=== PATIENT | female | born 1980 | race Hispanic/Latino ===

== ENCOUNTER 2017-09-29 06:02 | Emergency (ER) | payer OTHER ==
[2017-09-29 06:57] LABS: Absolute Lymphocytes (CBC) 2.8 K/uL (0.7-4.9); Absolute Monocytes 0.4 K/uL (0.1-1.3); Absolute Neutrophil 4.5 K/uL (1.8-8.0); Basophils % 0.8 % (0-1.3); Lymphocytes % 35.2 % (15.3-44.8); MCV 88.7 fL (80-100); MPV 8.4 fL (7.6-11.3); Monocytes % 5.2 % (3.3-12.3); RBC Red Blood Cell Count 4.06 M/uL (3.86-4.86)
[2017-09-29 07:10] LABS: Bicarbonate 26 mEq/L (21-31); Glucose Level 90 mg/dL (65-120); Potassium 3.8 mEq/L (3.6-5.0); Sodium Level 138 mEq/L (135-145)
[2017-09-29 07:11] LABS: BUN Blood Urea Nitrogen 12 mg/dL (6-20)
[2017-09-29] MEDS ORDERED: NA CHLORIDE 0.9% 1,000 ML ONE (07:18)
[2017-09-29] MEDS ORDERED: KETOROLAC 30 MG/ML INJ ONE (07:18)
--- NOTE | 2017-09-29 07:50 | ER ---
Nurse's Notes [facility] Name: Emelia Burton Age: 36 yrs Sex: Female : 1980 Arrival Date: 09/29/2017 Time: 06:03 Bed 5 Private MD: Diagnosis: Malaise and fatigue Presentation: 09/29 06:10 Presenting complaint: Patient states: dizziness, nausea, and fatigue since yesterday. aa1 Transition of care: patient was not received from another setting of care. Onset of symptoms was September 28, 2017. Initial Sepsis Screen: Does the patient meet any 2 criteria? No. Patient's initial sepsis screen is negative. Does the patient have a suspected source of infection? No. Patient's initial sepsis screen is negative. Care prior to arrival: None. 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 - Social history:: Smoking status: Patient/guardian denies using tobacco. Screenin:51 Abuse screen: Denies threats or abuse. Denies injuries from another. Nutritional ao screening: No deficits noted. Tuberculosis screening: No symptoms or risk factors identified. Fall Risk None identified. Assessment: 06:35 General: Appears in no apparent distress. comfortable, Behavior is calm, cooperative, ao appropriate for age. Pain: Complains of pain in headache Pain does not radiate. Pain currently is 7 out of 10 on a pain scale. Neuro: Level of Consciousness is awake, alert, obeys commands, Oriented to person, place, time, situation, Appropriate for age Moves all extremities. Speech is normal, Facial symmetry appears normal. Cardiovascular: Heart tones S1 S2 Capillary refill < 3 seconds Patient's skin is warm and dry. Respiratory: Airway is patent Respiratory effort is even, unlabored, Respiratory pattern is regular, symmetrical, Breath sounds are clear bilaterally. GI: Abdomen is non-distended. : No signs and/or symptoms were reported regarding the genitourinary system. EENT: No signs and/or symptoms were reported regarding the EENT system. Derm: Skin is intact, Skin is pink, warm \T\ dry. normal, Skin temperature is warm. Musculoskeletal: No signs and/or symptoms reported regarding the musculoskeletal system. 07:20 Reassessment: Patient appears in no apparent distress at this time. Patient and/or sg family updated on plan of care and expected duration. Pain level reassessed. Patient is alert, oriented x 3, equal unlabored respirations, skin warm/dry/pink. pt requesting a pillow, no pillows on the unit at this time, pt given towels and elevated head with those. Vital Signs: 06:12 BP 125 / 76; Pulse 77; Resp 18; Temp 97.0; Pulse Ox 99% on R/A; Weight 81.65 kg; Height aa1 5 ft. 0 in. (152.40 cm); Pain 7/10; 07:24 BP 114 / 75; Pulse 68; Resp 18; Pulse Ox 100% on R/A; sg 06:12 Body Mass Index 35.15 (81.65 kg, 152.40 cm) aa1 [place] Coma Score: 07:24 Eye Response: spontaneous(4). Verbal Response: oriented(5). Motor Response: obeys sg commands(6). Total: 15. ED Course: 06:03 Patient arrived in ED. ds1 06:11 Triage completed. aa1 06:12 Arm band placed on right wrist. Patient placed in an exam room, on a stretcher. aa1 06:13 [facility]asm[facility]C [facility] kb 06:13 Abel Warner MD is Attending Physician. kb 06:51 Patient has correct armband on for positive identification. Pulse ox on. NIBP on. ao 06:51 Inserted saline lock: 22 gauge in right forearm, using aseptic technique. Blood ao collected. 07:11 Fernie Briscoe, RN is Primary Nurse. sg 08:00 No provider procedures requiring assistance completed. IV discontinued, intact, sg bleeding controlled, No redness/swelling at site. Pressure dressing applied. Administered Medications: 07:23 Drug: NS 0.9% 1000 ml Route: IV; Rate: 1000 ml; Site: right wrist; sg 08:00 Follow up: Response: No adverse reaction; IV Status: Completed infusion; IV Intake: sg 990ml 07:23 Drug: TORadol 30 mg Route: IVP; Site: right wrist; sg 08:00 Follow up: Response: No adverse reaction; Pain is decreased sg Intake: 08:00 IV: 990ml; Total: 990ml. sg Outcome: 07:49 Discharge ordered by MD. liu 08:10 Discharged to home ambulatory. sg 08:10 Condition: good 08:10 Discharge instructions given to patient, Instructed on discharge instructions, follow up and referral plans. safety practices, Demonstrated understanding of instructions, follow-up care. 08:14 Patient left the ED. sg Signatures: Mariah Rasmussen, FORENSIC STRUCTURAL ENGINEER-C FORENSIC STRUCTURAL ENGINEER-Fernie Beck RN RN sg Radha Aldridge RN RN aa1 Kiah Wu ds1 Gilberto Call RN RN ao Corrections: (The following items were deleted from the chart) 06:13 06:12 PSHx: None; aa1 aa1
--- NOTE | 2017-09-29 07:50 | EDPHYS ---
Physician Documentation [facility] Name: Emelia Burton Age: 36 yrs Sex: Female : 1980 Arrival Date: 09/29/2017 Time: 06:03 Bed 5 Private MD: ED Physician Abel Warner HPI: 09/29 06:15 This 36 yrs old Female presents to ER via Ambulatory with complaints of kb Weakness. 06:15 The patient presents with dizziness, generalized weakness. Onset: The symptoms/episode kb began/occurred yesterday. Context: occurred at home, just prior to the episode the patient experienced no apparent symptoms. Modifying factors: The symptoms are alleviated by nothing, the symptoms are aggravated by nothing. Associated signs and symptoms: The patient has no apparent associated signs or symptoms. Severity of symptoms: At their worst the symptoms were mild moderate in the emergency department the symptoms are unchanged. Patient's baseline: Neuro: alert and fully oriented, Motor: no deficits, Ambulation: walks without assistance, Speech: normal. The patient has not experienced similar symptoms in the past. The patient has not recently seen a physician. Pt states she has had weakness, fatigue and dizziness since yesterday. States it got worse this morning when she went to work. Denies chest pain, palpitations or shortness of breath. States "I just assumed it was my blood pressure, but I don't have blood pressure problems.". 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 - Social history:: Smoking status: Patient/guardian denies using tobacco. ROS: 06:14 Constitutional: Negative for fever, chills, and weight loss, Cardiovascular: Negative kb for chest pain, palpitations, and edema, Respiratory: Negative for shortness of breath, cough, wheezing, and pleuritic chest pain, Abdomen/GI: Negative for abdominal pain, nausea, vomiting, diarrhea, and constipation, Back: Negative for injury and pain, : Negative for injury, bleeding, discharge, and swelling, MS/Extremity: Negative for injury and deformity, Skin: Negative for injury, rash, and discoloration. 06:14 Neuro: Positive for dizziness, headache, weakness, Negative for altered mental status, gait disturbance, hearing loss, loss of consciousness, numbness, seizure activity, speech changes, syncope, near syncope, tingling, tinnitus, tremor, visual changes. Exam: 06:14 Constitutional: This is a well developed, well nourished patient who is awake, alert, kb and in no acute distress. Head/Face: Normocephalic, atraumatic. ENT: Nares patent. No nasal discharge, no septal abnormalities noted. Tympanic membranes are normal and external auditory canals are clear. Oropharynx with no redness, swelling, or masses, exudates, or evidence of obstruction, uvula midline. Mucous membranes moist. Chest/axilla: Normal chest wall appearance and motion. Nontender with no deformity. No lesions are appreciated. Cardiovascular: Regular rate and rhythm with a normal S1 and S2. No gallops, murmurs, or rubs. Normal PMI, no JVD. No pulse deficits. Respiratory: Lungs have equal breath sounds bilaterally, clear to auscultation and percussion. No rales, rhonchi or wheezes noted. No increased work of breathing, no retractions or nasal flaring. Abdomen/GI: Soft, non-tender, with normal bowel sounds. No distension or tympany. No guarding or rebound. No evidence of tenderness throughout. Back: No spinal tenderness. No costovertebral tenderness. Full range of motion. Skin: Warm, dry with normal turgor. Normal color with no rashes, no lesions, and no evidence of cellulitis. MS/ Extremity: Pulses equal, no cyanosis. Neurovascular intact. Full, normal range of motion. Neuro: Awake and alert, GCS 15, oriented to person, place, time, and situation. Cranial nerves II-XII grossly intact. Motor strength 5/5 in all extremities. Sensory grossly intact. Cerebellar exam normal. Normal gait. Vital Signs: 06:12 BP 125 / 76; Pulse 77; Resp 18; Temp 97.0; Pulse Ox 99% on R/A; Weight 81.65 kg; Height aa1 5 ft. 0 in. (152.40 cm); Pain 7/10; 07:24 BP 114 / 75; Pulse 68; Resp 18; Pulse Ox 100% on R/A; sg 06:12 Body Mass Index 35.15 (81.65 kg, 152.40 cm) aa1 [place] Coma Score: 07:24 Eye Response: spontaneous(4). Verbal Response: oriented(5). Motor Response: obeys sg commands(6). Total: 15. MDM: 06:13 Patient medically screened. kb 06:15 Data reviewed: vital signs, nurses notes. Data interpreted: Pulse oximetry: on room air kb is 99 %. Interpretation: normal. 06:32 ED course: Pt ambulates with steady gait to room and restroom. No neuro deficits noted. kb . 07:48 Counseling: I had a detailed discussion with the patient and/or guardian regarding: the kb historical points, exam findings, and any diagnostic results supporting the discharge/admit diagnosis, lab results, the need for outpatient follow up, a family practitioner, to return to the emergency department if symptoms worsen or persist or if there are any questions or concerns that arise at home. 09/29 06:14 Order name: CBC with Diff; Complete Time: 07:03 kb 09/29 06:14 Order name: Basic Metabolic Panel; Complete Time: 07:12 kb 09/29 06:14 Order name: [place] Screen Profile; Complete Time: 07:48 kb 09/29 06:40 Order name: Urine Dipstick--Ancillary (enter results) fc 09/29 06:14 Order name: Urine Dipstick-Ancillary (obtain specimen); Complete Time: 06:31 kb 09/29 06:14 Order name: IV Start; Complete Time: 06:52 kb Administered Medications: 07:23 Drug: NS 0.9% 1000 ml Route: IV; Rate: 1000 ml; Site: right wrist; sg 08:00 Follow up: Response: No adverse reaction; IV Status: Completed infusion; IV Intake: sg 990ml 07:23 Drug: TORadol 30 mg Route: IVP; Site: right wrist; sg 08:00 Follow up: Response: No adverse reaction; Pain is decreased sg Disposition: 09/30 03:28 Co-signature as Attending Physician, Mariah GONGORA I agree with the assessment tw4 and plan of care. Disposition: 09/29/17 07:49 Discharged to Home. Impression: Malaise and fatigue. - Condition is Stable. - Discharge Instructions: Fatigue, Weakness, [id number]. - Medication Reconciliation Form, Thank You Letter, Antibiotic Education, Prescription Opioid Use, Work release form form. - Follow up: Emergency Department; When: As needed; Reason: Worsening of condition. Follow up: Private Physician; When: 2 - 3 days; Reason: Recheck today's complaints, Continuance of care, Re-evaluation by your physician. Signatures: Dispatcher [employer] EDMariah Carballo, LYNN-C CARE ASST-Fernie Beck, RN RN sg Radha Aldridge RN RN aa1 Abel Warner MD MD tw4 Corrections: (The following items were deleted from the chart) 09/29 06:13 06:12 PSHx: None; aa1 aa1 06:31 06:14 Urine Test ordered. noe liu 08:14 07:49 09/29/2017 07:49 Discharged to Home. Impression: Malaise and fatigue. Condition sg is Stable. Discharge Instructions: Fatigue, Weakness, [id number]. Forms are Medication Reconciliation Form, Thank You Letter, Antibiotic Education, Prescription Opioid Use. Follow up: Emergency Department; When: As needed; Reason: Worsening of condition. Follow up: Private Physician; When: 2 - 3 days; Reason: Recheck today's complaints, Continuance of care, Re-evaluation by your physician. kb
[2017-09-29 09:50] LABS: Urine Blood NEGATIVE (NEG); Urine Glucose NEGATIVE (NEG); Urine Protein NEGATIVE (NEG)
== END 2017-09-29 08:14 | disposition home or self-care (01) ==
LOC: ER 06:02
DX: R53.81 Other malaise (principal); R53.83 Other fatigue
CPT/HCPCS: 36415; 80048; 81003; 85025; 86308; 96361; 96374; 99284; J7030

== ENCOUNTER 2017-09-30 15:39 | Emergency (ER) | payer OTHER ==
--- NOTE | 2017-09-30 17:02 | RAD REPORT ---
EXAM DESCRIPTION: CT - Head Brain Wo Cont - 09/30/2017 4:56 pm CLINICAL HISTORY: Persistent headache COMPARISON: None. TECHNIQUE: Axial 5 mm thick images of the head were obtained without IV contrast. All CT scans are performed using dose optimization technique as appropriate and may include automated exposure control or mA/KV adjustment according to patient size. FINDINGS: No intracranial hemorrhage, mass, edema or shift of mid-line structures. No acute infarcti on changes seen. No abnormal extra-axial fluid collections. Ventricles are normal. Mastoid air cells and visualized portions of the paranasal sinuses are clear. No acute bony findings. IMPRESSION: Negative non-contrast CT head examination.
[2017-09-30] MEDS ORDERED: DEXAMETHASONE 10 MG/ML VIAL ONE (17:21)
[2017-09-30] MEDS ORDERED: METOCLOPRAMIDE 10 MG/2mL INJ ONE (17:21)
[2017-09-30] MEDS ORDERED: DIPHENHYDRAMINE 50 MG/ML VIAL ONE (17:21)
[2017-09-30] MEDS ORDERED: NA CHLORIDE 0.9% 1,000 ML ONE (17:21)
[2017-09-30] MEDS ORDERED: ONDANSETRON 4 MG/2 ML VIAL ONE (17:22)
[2017-09-30 17:29] LABS: Absolute Lymphocytes (CBC) 2.7 K/uL (0.7-4.9); Absolute Monocytes 0.5 K/uL (0.1-1.3); Absolute Neutrophil 5.7 K/uL (1.8-8.0); Basophils % 0.4 % (0-1.3); Eosinophils % 1.6 % (0-4.4); Hematocrit 36.5 % (36.0-45.0); Lymphocytes % 29.6 % (15.3-44.8); MCH 29.9 pg (27.0-35.0); MCV 89.2 fL (80-100); MPV 8.2 fL (7.6-11.3); RBC Red Blood Cell Count 4.09 M/uL (3.86-4.86)
[2017-09-30 17:32] LABS: Protime INR 1.01
[2017-09-30 17:37] LABS: BUN Blood Urea Nitrogen 14 mg/dL (6-20); Bicarbonate 27 mEq/L (21-31); Glucose Level 103 mg/dL (65-120); Potassium 3.7 mEq/L (3.6-5.0); Sodium Level 139 mEq/L (135-145)
--- NOTE | 2017-09-30 18:17 | EDPHYS ---
Physician Documentation [facility] Name: Emelia Burton Age: 36 yrs Sex: Female : 1980 Arrival Date: 09/30/2017 Time: 15:42 Bed 23 Private MD: ED Physician Joey Napier HPI: 09/30 16:30 This 36 yrs old Female presents to ER via Ambulatory with complaints of cp Headache. 16:30 The patient complains of pain to the forehead and left restorationist. cp 16:30 The patient describes the headache as aching, constant. Onset: The symptoms/episode cp began/occurred yesterday. Associated signs and symptoms: Pertinent positives: nausea, Photophobia general weakness. Severity of symptoms: in the emergency department the pain a " 10" out of "10". Headache History: Other more persistent than usual. The patient has been recently seen at the [facility], yesterday, for similar complaints labs were performed. 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 - Social history:: Smoking status: Patient/guardian denies using tobacco. ROS: 16:35 Constitutional: Negative for body aches, chills, fever, poor PO intake. cp 16:35 Eyes: Negative for injury, pain, redness, and discharge. cp 16:35 ENT: Negative for drainage from ear(s), ear pain, sore throat, difficulty swallowing, cp difficulty handling secretions. 16:35 Cardiovascular: Negative for chest pain, edema, palpitations. cp 16:35 Respiratory: Negative for cough, shortness of breath, wheezing. 16:35 Abdomen/GI: Positive for nausea, Negative for abdominal pain, vomiting, diarrhea, constipation. 16:35 Back: Negative for pain at rest, pain with movement, radiated pain. 16:35 : Negative for urinary symptoms. 16:35 MS/extremity: Negative for injury or acute deformity, decreased range of motion. 16:35 Neuro: Positive for headache, Negative for altered mental status, dizziness, weakness. 16:35 All other systems are negative. Exam: 16:45 Constitutional: The patient appears in no acute distress, alert, awake, cp non-diaphoretic, non-toxic, well developed, well nourished, uncomfortable. 16:45 Head/Face: Normocephalic, atraumatic. Eyes: Pupils equal round and reactive to light, cp extra-ocular motions intact. Lids and lashes normal. Conjunctiva and sclera are non-icteric and not injected. Cornea within normal limits. Periorbital areas with no swelling, redness, or edema. ENT: Nares patent. No nasal discharge, no septal abnormalities noted. Tympanic membranes are normal and external auditory canals are clear. Oropharynx with no redness, swelling, or masses, exudates, or evidence of obstruction, uvula midline. Mucous membranes moist. Neck: Trachea midline, no thyromegaly or masses palpated, and no cervical lymphadenopathy. Supple, full range of motion without nuchal rigidity, or vertebral point tenderness. No Meningismus. Chest/axilla: Normal chest wall appearance and motion. Nontender with no deformity. No lesions are appreciated. 16:45 Cardiovascular: Rate: normal, Rhythm: regular, Pulses: Pulses are 2+ in right radial artery and left radial artery. Edema: is not appreciated, JVD: is not appreciated. 16:45 Respiratory: the patient does not display signs of respiratory distress, Respirations: normal, no use of accessory muscles, no retractions, no splinting, no tachypnea, labored breathing, is not present, Breath sounds: are clear throughout, no decreased breath sounds, no stridor, no wheezing. 16:45 Abdomen/GI: Inspection: abdomen appears normal, Bowel sounds: active, all quadrants, Palpation: abdomen is soft and non-tender, in all quadrants, rebound tenderness, is not appreciated, voluntary guarding, is not appreciated, involuntary guarding, is not appreciated. 16:45 Back: pain, is absent, ROM is normal. 16:45 Skin: cellulitis, no rash present. cp 16:45 Neuro: Orientation: to person, place \\T\\ time. Mentation: lucid, able to follow commands, cp Cerebellar function: is grossly normal, Motor: moves all fours, strength is normal, Sensation: no obvious gross deficits, Gait: is steady. Vital Signs: 16:13 BP 130 / 74; Pulse 90; Resp 18; Temp 98.3; Pulse Ox 98% on R/A; Weight 81.65 kg; Height ph 5 ft. 0 in. (152.40 cm); Pain 10/10; 17:39 BP 130 / 71; Pulse 86; Resp 20; Pulse Ox 97% on R/A; mb3 17:59 BP 124 / 81; Pulse 61; Resp 14; Pulse Ox 100% on R/A; Pain 0/10; mb3 19:02 BP 118 / 76; Pulse 83; Resp 18; Pulse Ox 97% on R/A; Pain 0/10; mb3 16:13 Body Mass Index 35.15 (81.65 kg, 152.40 cm) ph MDM: 16:17 Patient medically screened. ai 17:10 Refusal of service: The patient/guardian displays adequate decision making capability cp and despite a detailed discussion of alternatives, benefits, risks, and consequences refuses: Lumbar Puncture procedure. 18:15 Data reviewed: vital signs, nurses notes, lab test result(s), radiologic studies, CT cp scan, and as a result, I will discharge patient. 18:15 Response to treatment: the patient's symptoms have markedly improved after treatment. 09/30 16:31 Order name: CBC with Diff; Complete Time: 18:12 09/30 18:13 Interpretation: Reviewed. 09/30 16:31 Order name: BMP; Complete Time: 18:12 cp / 18:13 Interpretation: Reviewed. 09/30 16:31 Order name: CT Head Brain wo Cont: headache; Complete Time: 17:08 09/30 17:08 Interpretation: Report reviewed. 05 16:31 Order name: PT-INR; Complete Time: 18:12 cp 09/30 16:31 Order name: Ptt, Activated; Complete Time: 18:12 cp 09/30 16:26 Order name: Orthostatics 09/30 16:31 Order name: Urine Dipstick-Ancillary (obtain specimen) 05 16:31 Order name: Urine Test (obtain specimen) / 16:31 Order name: IV; Complete Time: 17:37 cp Administered Medications: 17:25 Drug: Benadryl 25 mg Route: IVP; Site: right forearm; mb3 18:03 Follow up: Response: No adverse reaction; Pain is decreased mb3 17:25 Drug: NS 0.9% 1000 ml Route: IV; Rate: 1 bolus; Site: right forearm; mb3 19:02 Follow up: Response: No adverse reaction; IV Status: Completed infusion; IV Intake: mb3 600ml 17:26 Drug: Reglan 10 mg Route: IVP; Site: right forearm; mb3 18:03 Follow up: Response: No adverse reaction; Pain is decreased mb3 17:26 Drug: Dexamethasone 10 mg Route: IVP; Site: right forearm; mb3 18:03 Follow up: Response: No adverse reaction mb3 17:26 Drug: Zofran 4 mg Route: IVP; Site: right forearm; mb3 18:03 Follow up: Response: No adverse reaction; Nausea is decreased mb3 Disposition: 10/01 11:46 Co-signature as Attending Physician, Joey Napier MD I agree with the assessment and ai plan of care. Disposition: 09/30/17 18:16 Discharged to Home. Impression: Headache. - Condition is Stable. - Discharge Instructions: Migraine Headache. - Prescriptions for Fiorinal 50- 325-40 mg Oral Capsule - take 1 capsule by ORAL route every 4 hours As needed - not to exceed 6 capsules per day; 20 capsule. promethazine 25 mg Oral Tablet - take 1 tablet by ORAL route every 6 hours As needed; 20 tablet. - Medication Reconciliation Form, Thank You Letter, Antibiotic Education, Prescription Opioid Use form. - Follow up: Sacha Gant MD; When: 1 - 2 days; Reason: Recheck today's complaints. - Problem is an ongoing problem. - Symptoms have improved. Signatures: Dispatcher [employer] Joey Olmstead MD MD cha Hall, Patricia RN RN ph Joey Hernandez PA PA cp Barnett, Mark, RN RN mb3 Corrections: (The following items were deleted from the chart) 09/30 19:04 18:16 09/30/2017 18:16 Discharged to Home. Impression: Headache. Condition is Stable. mb3 Forms are Medication Reconciliation Form, Thank You Letter, Antibiotic Education, Prescription Opioid Use. Follow up: Sacha Gant; When: 1 - 2 days; Reason: Recheck today's complaints. Problem is an ongoing problem. Symptoms have improved. cp
--- NOTE | 2017-09-30 18:17 | ER ---
Nurse's Notes [facility] Name: Emelia Burton Age: 36 yrs Sex: Female : 1980 Arrival Date: 09/30/2017 Time: 15:42 Bed 23 Private MD: Diagnosis: Headache Presentation: 09/30 16:10 Presenting complaint: Patient states: " I have had a headache since yesterday and it ph won't go away. I took Tylenol and it hasn't helped. I have Topamax but it seem like when I take it the headache comes back worse the next day." Pt reports headache 10/10, nausea, fatigue and sensitivity to smells. Transition of care: patient was not received from another setting of care. Onset of symptoms was September 30, 2017. Initial Sepsis Screen: Does the patient meet any 2 criteria? No. Patient's initial sepsis screen is negative. Does the patient have a suspected source of infection? No. Patient's initial sepsis screen is negative. Care prior to arrival: Medication(s) given: Tylenol, at 1300. 16:10 Method Of Arrival: Ambulatory ph 16:10 Acuity: SARAY 3 ph Triage Assessment: 16:36 Headache History: The patient has had previous headaches and this one is similar to mb3 previous episodes. General: Appears uncomfortable, well groomed. General: Appears Behavior is calm, cooperative, appropriate for age. Pain: Pain began. Pain: Complains of pain in forehead and left nondenominational. 19:03 Pain: Also complains of no other associated symptoms. mb3 PROJECT ENG: 16:13 LMP N/A - Hysterectomy ph Historical: - Allergies: 16:13 No Known Allergies; ph - Home Meds: 16:13 Topamax Oral [Active]; ph - PMHx: 16:13 Migraines; ph - PSHx: 16:13 Hysterectomy; ph - Immunization history:: Adult Immunizations up to date. - Social history:: Smoking status: Patient/guardian denies using tobacco. Screenin:35 Abuse screen: Denies threats or abuse. Nutritional screening: No deficits noted. mb3 Tuberculosis screening: No symptoms or risk factors identified. Fall Risk None identified. Assessment: 16:31 General: Appears distressed, uncomfortable, well groomed, Behavior is calm, mb3 cooperative, appropriate for age. Pain: Complains of pain in forehead and left nondenominational Pain radiates to base of the skull Pain at worst was 10 out of 10 on a pain scale. Neuro: No deficits noted. Level of Consciousness is awake, alert, obeys commands, Oriented to person, place, time, situation. Cardiovascular: No deficits noted. Heart tones S1 S2 present Capillary refill < 3 seconds. Respiratory: No deficits noted. Airway is patent Breath sounds are clear bilaterally. GI: No deficits noted. No signs and/or symptoms were reported involving the gastrointestinal system. : No deficits noted. No signs and/or symptoms were reported regarding the genitourinary system. EENT: No signs and/or symptoms were reported regarding the EENT system. Musculoskeletal: No signs and/or symptoms reported regarding the musculoskeletal system. Capillary refill < 3 seconds. 17:58 Reassessment: Patient appears in no apparent distress at this time. Patient and/or mb3 family updated on plan of care and expected duration. Pain level reassessed. Patient is alert, oriented x 3, equal unlabored respirations, skin warm/dry/pink. Patient states feeling better. Patient states symptoms have improved. Vital Signs: 16:13 BP 130 / 74; Pulse 90; Resp 18; Temp 98.3; Pulse Ox 98% on R/A; Weight 81.65 kg; Height ph 5 ft. 0 in. (152.40 cm); Pain 10/10; 17:39 BP 130 / 71; Pulse 86; Resp 20; Pulse Ox 97% on R/A; mb3 17:59 BP 124 / 81; Pulse 61; Resp 14; Pulse Ox 100% on R/A; Pain 0/10; mb3 19:02 BP 118 / 76; Pulse 83; Resp 18; Pulse Ox 97% on R/A; Pain 0/10; mb3 16:13 Body Mass Index 35.15 (81.65 kg, 152.40 cm) ph ED Course: 15:42 Patient arrived in ED. mr 16:12 Triage completed. ph 16:14 Arm band placed on. ph 16:16 Joey Hernandez PA is PHCP. cp 16:16 Joey Napier MD is Attending Physician. cp 16:26 Jimy Dietz, ALFRED is Primary Nurse. mb3 16:36 Patient has correct armband on for positive identification. Bed in low position. Call mb3 light in reach. Side rails up X 1. 16:[address] via wheelchair. mb3 16:52 CT completed. Patient tolerated procedure well. Patient moved to CT via wheelchair. sj Patient moved back from CT. 16:56 CT Head Brain wo Cont: headache In Process Unspecified. EDMS 17:07 Patient moved back from CT. mb3 17:10 Inserted saline lock: 20 gauge in right forearm, using aseptic technique. mb3 18:15 Sacha Gant MD is Referral Physician. cp 19:03 No provider procedures requiring assistance completed. IV discontinued, intact, mb3 bleeding controlled, No redness/swelling at site. Pressure dressing applied. Administered Medications: 17:25 Drug: Benadryl 25 mg Route: IVP; Site: right forearm; mb3 18:03 Follow up: Response: No adverse reaction; Pain is decreased mb3 17:25 Drug: NS 0.9% 1000 ml Route: IV; Rate: 1 bolus; Site: right forearm; mb3 19:02 Follow up: Response: No adverse reaction; IV Status: Completed infusion; IV Intake: mb3 600ml 17:26 Drug: Reglan 10 mg Route: IVP; Site: right forearm; mb3 18:03 Follow up: Response: No adverse reaction; Pain is decreased mb3 17:26 Drug: Dexamethasone 10 mg Route: IVP; Site: right forearm; mb3 18:03 Follow up: Response: No adverse reaction mb3 17:26 Drug: Zofran 4 mg Route: IVP; Site: right forearm; mb3 18:03 Follow up: Response: No adverse reaction; Nausea is decreased mb3 Intake: 19:02 IV: 600ml; Total: 600ml. mb3 Outcome: 18:16 Discharge ordered by . cp 19:04 Discharged to home ambulatory, with family. mb3 19:04 Condition: stable 19:04 Discharge instructions given to patient, family, Instructed on discharge instructions, follow up and referral plans. medication usage, Demonstrated understanding of instructions, follow-up care, medications, Prescriptions given X 2. 19:04 Patient left the ED. mb3 Signatures: Dispatcher [employer] [facility] Becki Orr Rox Malloy Patricia, RN RN Joey Barrett, KATHRYN PA cp Jimy Dietz RN RN mb3
== END 2017-09-30 19:04 | disposition home or self-care (01) ==
LOC: ER 15:39
DX: R51 Headache (principal)
CPT/HCPCS: 36415; 70450; 80048; 85025; 85610; 85730; 96361; 96374; 96375; 99284; J1100; J2405; J2765; J7030

== ENCOUNTER 2018-02-20 21:38 | Emergency (ER) | payer OTHER ==
[2018-02-20 22:14] LABS: Absolute Monocytes 0.6 K/uL (0.1-1.3); Absolute Neutrophil 7.6 K/uL (1.8-8.0); Basophils % 0.8 % (0-1.3); Eosinophils % 1.1 % (0-4.4); Hematocrit 38.7 % (36.0-45.0); Lymphocytes % 26.4 % (15.3-44.8); MCH 30.8 pg (27.0-35.0); MCV 88.4 fL (80-100); MPV 8.8 fL (7.6-11.3); Monocytes % 5.4 % (3.3-12.3); RBC Red Blood Cell Count 4.37 M/uL (3.86-4.86)
[2018-02-20 22:17] LABS: Protime INR 1.07
[2018-02-20 22:37] LABS: ALT/SGPT 62 U/L (12-78); AST/SGOT 27 U/L (15-37); Alkaline Phosphatase 97 U/L (45-117); BUN Blood Urea Nitrogen 13 mg/dL (7-18); Bicarbonate 24 mmol/L (21-32); Bilirubin Direct 0.2 mg/dL (0-0.2); Bilirubin Total 0.5 mg/dL (0.2-1.0); Glucose Level 95 mg/dL (74-106); Magnesium 2.2 mg/dL (1.8-2.4); NT PRO-BNP 19 pg/mL (<125); Potassium 3.4 mmol/L (3.5-5.1); Protein, Total 7.4 g/dL (6.4-8.2); Sodium Level 140 mmol/L (136-145); Troponin (Emerg Dept Use Only) < 0.02 ng/mL (0.0-0.045)
[2018-02-20] MEDS ORDERED: POTASSIUM 25 MEQ EFFERV TAB ONE (22:50)
--- NOTE | 2018-02-21 00:19 | ER ---
Nurse's Notes [facility] Name: Emelia Burton Age: 37 yrs Sex: Female : 1980 Arrival Date: 02/20/2018 Time: 21:43 Bed 8 Private MD: Diagnosis: Syncope and collapse Presentation: 02/20 21:44 Presenting complaint: EMS states: Pt was working outside all day. Pt states she started tl2 feeling weak after work, went home to take a shower continued to feel weak and tired. Pt states she returned home from the store and felt "cold" and passed out. Did not wake up until paramedics arrived and did a sternal rub. Pt is AOx4 in triage. Transition of care: patient was not received from another setting of care. Onset of symptoms was 1800. Risk Assessment: Do you want to hurt yourself or someone else? Patient reports no desire to harm self or others. Initial Sepsis Screen: Does the patient meet any 2 criteria? No. Patient's initial sepsis screen is negative. Does the patient have a suspected source of infection? No. Patient's initial sepsis screen is negative. Care prior to arrival: IV initiated. 18 GA, in the right antecubital area, Glucose check: 104. 21:44 Method Of Arrival: EMS: [facility] tl2 21:44 Acuity: SARAY 3 tl2 Triage Assessment: 21:48 General: Appears in no apparent distress. uncomfortable, Behavior is calm, cooperative, tl2 appropriate for age, drowsy. Pain: Denies pain. Neuro: Level of Consciousness is awake, alert, obeys commands, Oriented to person, place, time, situation, Speech is normal, Facial symmetry appears normal. Neuro: Reports dizziness, a syncopal episode weakness. Cardiovascular: Denies chest pain. Respiratory: Airway is patent Respiratory effort is even, unlabored, Respiratory pattern is regular, symmetrical. GI: No signs and/or symptoms were reported involving the gastrointestinal system. Derm: Skin is pale. Historical: - Allergies: 21:48 No Known Allergies; tl2 - Home Meds: 21:48 Topamax Oral [Active]; tl2 - PMHx: 21:48 Migraines; tl2 - PSHx: 21:48 None; tl2 - Immunization history:: Adult Immunizations up to date. - Social history:: Smoking status: Patient/guardian denies using tobacco. - Ebola Screening: : No symptoms or risks identified at this time. Screenin:53 Abuse screen: Denies threats or abuse. Nutritional screening: No deficits noted. tl2 Tuberculosis screening: No symptoms or risk factors identified. Fall Risk Gait- Weak (10 pts.). Assessment: 22:04 General: see triage assessment. tl2 23:00 Reassessment: Patient appears in no apparent distress at this time. Patient and/or tl2 family updated on plan of care and expected duration. Pain level reassessed. Patient is alert, oriented x 3, equal unlabored respirations, skin warm/dry/pink. 23:30 Reassessment: Patient appears in no apparent distress at this time. Patient and/or tl2 family updated on plan of care and expected duration. Pain level reassessed. Patient is alert, oriented x 3, equal unlabored respirations, skin warm/dry/pink. pt ambulatory to restroom. 02/21 00:25 Reassessment: Patient appears in no apparent distress at this time. Patient and/or tl2 family updated on plan of care and expected duration. Pain level reassessed. Patient is alert, oriented x 3, equal unlabored respirations, skin warm/dry/pink. Pt verbalized understanding of discharge instructions, need for follow up Patient states feeling better. Vital Signs: 02/20 21:48 BP 133 / 92; Pulse 70; Resp 18; Temp 98.1(O); Pulse Ox 99% on R/A; Weight 79.38 kg; tl2 Height 5 ft. 0 in. (152.40 cm); Pain 0/10; 22:04 BP 124 / 84 Supine; Pulse 71; tl2 22:04 BP 127 / 67 Sitting; Pulse 78; tl2 22:04 BP 124 / 91 Standing; Pulse 83; tl2 23:03 BP 124 / 91; Pulse 83; Resp 18; Pulse Ox 99% on R/A; tl2 02/21 00:04 BP 115 / 76; Pulse 71; Resp 18; Pulse Ox 100% on R/A; tl2 02/20 21:48 Body Mass Index 34.18 (79.38 kg, 152.40 cm) tl2 ED Course: 02/20 21:43 Patient arrived in ED. tl2 21:45 Joey Hernandez PA is PHCP. cp 21:45 Raghav Doherty MD is Attending Physician. cp 21:47 Triage completed. tl2 21:48 Arm band placed on right wrist. tl2 21:53 Patient has correct armband on for positive identification. Placed in gown. Bed in low tl2 position. Call light in reach. Side rails up X2. 21:53 Maintain EMS IV. Dressing intact. Good blood return noted. Site clean \\T\\ dry. Gauge \\T\\ tl 2 site: 18 g R AC. 21:56 Chen Fleming RN is Primary Nurse. tl2 22:18 Notified Nurse Practitioner and/or Physician Production Broacher of a critical lab result(s), evelyn D-Dimer [phone] Joey PERALTA notified. 22:53 Radiology exam delayed due to test not completed at this time. jg6 23:17 Radiology exam delayed due to test not completed at this time. kw1 23:[address] via wheelchair. kw1 23:46 CT completed. Patient tolerated procedure well. Patient moved back from CT. kw1 23:48 CT Head C Spine In Process Unspecified. EDMS 23:52 CT Chest For PE Angio In Process Unspecified. EDMS 02/21 00:17 Marcial Gracia MD is Referral Physician. cp 00:25 No provider procedures requiring assistance completed. IV discontinued, intact, tl2 bleeding controlled, No redness/swelling at site. Pressure dressing applied. 00:26 Primary Nurse role handed off by Chen Fleming RN tl2 00:31 Chen Fleming RN is Primary Nurse. tl2 Administered Medications: 02/20 22:48 Drug: Potassium Effervescent Tablet 25 mEq Route: PO; ea 02/21 00:26 Follow up: Response: No adverse reaction tl2 Outcome: 00:18 Discharge ordered by . cp 00:25 Discharged to home ambulatory, with family. tl2 00:25 Condition: stable 00:25 Discharge instructions given to patient, family, Instructed on discharge instructions, follow up and referral plans. Demonstrated understanding of instructions, follow-up care. 00:26 Patient left the ED. tl2 00:32 Patient left the ED. tl2 Signatures: Dispatcher [employer] EDLeida Leonard RN RN bb Page, Corey, PA PA cp Knox, Taylor, RN RN tl2 Dafne Long RN RN ea Wilhelm, Kimberly kw1 Jessica Noble jg6
--- NOTE | 2018-02-21 00:19 | EDPHYS ---
Physician Documentation [facility] Name: Emelia Burton Age: 37 yrs Sex: Female : 1980 Arrival Date: 02/20/2018 Time: 21:43 Bed 8 Private MD: ED Physician Raghav Doherty HPI: 02/20 22:00 This 37 yrs old Female presents to ER via EMS with complaints of Weakness, cp Syncope. 22:00 The patient presents to the emergency department with weakness of the entire body, cp generalized weakness. Onset: The symptoms/episode began/occurred today. 22:00 Associated signs and symptoms: Pertinent positives: chills, Pertinent negatives: cp altered mental status, headache, neck stiffness, paresthesias. Patient's baseline: Neuro: alert and fully oriented, Motor: no deficits, Ambulation: walks without assistance, Speech: normal. 22:00 Current symptoms: headache, that is mild. cp 22:00 Patient reports syncopal episode tonight after returning home from store. Patient cp reports feeling weak all over and then being awakened by paramedics. Historical: - Allergies: 21:48 No Known Allergies; tl2 - Home Meds: 21:48 Topamax Oral [Active]; tl2 - PMHx: 21:48 Migraines; tl2 - PSHx: 21:48 None; tl2 - Immunization history:: Adult Immunizations up to date. - Social history:: Smoking status: Patient/guardian denies using tobacco. - Ebola Screening: : No symptoms or risks identified at this time. ROS: 22:05 Constitutional: Positive for chills, Negative for body aches, fever, poor PO intake. cp 22:05 Eyes: Negative for injury, pain, redness, and discharge. cp 22:05 ENT: Negative for drainage from ear(s), ear pain, sore throat, difficulty swallowing, difficulty handling secretions. 22:05 Cardiovascular: Negative for chest pain, edema, palpitations. 22:05 Respiratory: Negative for cough, shortness of breath, wheezing. 22:05 Abdomen/GI: Negative for abdominal pain, nausea, vomiting, and diarrhea, anorexia, black/tarry stool, rectal bleeding. 22:05 Back: Negative for pain at rest, pain with movement, radiated pain. 22:05 : Negative for urinary symptoms, vaginal bleeding, vaginal discharge. 22:05 Skin: Negative for cellulitis, rash. 22:05 Neuro: Positive for syncope, general weakness, Negative for altered mental status, dizziness, headache. 22:05 All other systems are negative. Exam: 22:00 ECG was reviewed by the Attending Physician. cp 22:10 Constitutional: The patient appears in no acute distress, alert, awake, cp non-diaphoretic, non-toxic, well developed, well nourished. 22:10 Head/Face: Normocephalic, atraumatic. Eyes: Pupils equal round and reactive to light, cp extra-ocular motions intact. Lids and lashes normal. Conjunctiva and sclera are non-icteric and not injected. Cornea within normal limits. Periorbital areas with no swelling, redness, or edema. ENT: Nares patent. No nasal discharge, no septal abnormalities noted. Tympanic membranes are normal and external auditory canals are clear. Oropharynx with no redness, swelling, or masses, exudates, or evidence of obstruction, uvula midline. Mucous membranes moist. Neck: Trachea midline, no thyromegaly or masses palpated, and no cervical lymphadenopathy. Supple, full range of motion without nuchal rigidity, or vertebral point tenderness. No Meningismus. Chest/axilla: Normal chest wall appearance and motion. Nontender with no deformity. No lesions are appreciated. 22:10 Cardiovascular: Rate: normal, Rhythm: regular, Heart sounds: murmur, not appreciated, rub, not appreciated, gallop, not appreciated, Edema: is not appreciated, JVD: is not appreciated. 22:10 Respiratory: the patient does not display signs of respiratory distress, Respirations: normal, no use of accessory muscles, no retractions, no splinting, no tachypnea, labored breathing, is not present, Breath sounds: are clear throughout, no decreased breath sounds, no stridor, no wheezing. 22:10 Abdomen/GI: Inspection: abdomen appears normal, Bowel sounds: active, all quadrants, Palpation: abdomen is soft and non-tender, in all quadrants, rebound tenderness, is not appreciated, voluntary guarding, is not appreciated, involuntary guarding, is not appreciated. 22:10 Back: pain, is absent, ROM is normal. cp 22:10 Skin: cellulitis, is not appreciated, no rash present. 22:10 Neuro: Orientation: to person, place \T\ time. Mentation: lucid, able to follow commands, Cerebellar function: is grossly normal, Motor: moves all fours, strength is normal, Sensation: no obvious gross deficits, Gait: is steady. Vital Signs: 21:48 BP 133 / 92; Pulse 70; Resp 18; Temp 98.1(O); Pulse Ox 99% on R/A; Weight 79.38 kg; tl2 Height 5 ft. 0 in. (152.40 cm); Pain 0/10; 22:04 BP 124 / 84 Supine; Pulse 71; tl2 22:04 BP 127 / 67 Sitting; Pulse 78; tl2 22:04 BP 124 / 91 Standing; Pulse 83; tl2 23:03 BP 124 / 91; Pulse 83; Resp 18; Pulse Ox 99% on R/A; tl2 02/21 00:04 BP 115 / 76; Pulse 71; Resp 18; Pulse Ox 100% on R/A; tl2 02/20 21:48 Body Mass Index 34.18 (79.38 kg, 152.40 cm) tl2 MDM: 02/20 21:45 Patient medically screened. cp 02/21 00:17 Data reviewed: vital signs, nurses notes, lab test result(s), EKG, radiologic studies, cp CT scan. 00:17 Test interpretation: by ED physician or midlevel provider: ECG. Counseling: I had a cp detailed discussion with the patient and/or guardian regarding: the historical points, exam findings, and any diagnostic results supporting the discharge/admit diagnosis. Response to treatment: the patient's symptoms have markedly improved after treatment. ED course: VSS. Patient reports symptoms improved. CT results negative for acute findings. Will discharge to home for continued monitoring. 02/20 21:50 Order name: Basic Metabolic Panel; Complete Time: 22:40 cp 02/20 22:40 Interpretation: Normal except: K 3.4. cp 02/20 21:50 Order name: CBC with Diff; Complete Time: 22:18 cp 02/21 00:16 Interpretation: Normal except: WBC 11.4. cp 02/20 21:50 Order name: LFT's; Complete Time: 22:40 cp 02/20 21:50 Order name: Magnesium; Complete Time: 22:40 cp 02/20 21:50 Order name: NT PRO-BNP; Complete Time: 22:40 cp 02/20 21:50 Order name: PT-INR; Complete Time: 22:18 cp 02/20 21:50 Order name: Troponin (emerg Dept Use Only); Complete Time: 22:40 cp 02/20 21:50 Order name: EKG; Complete Time: 21:51 cp 02/20 21:50 Order name: D-Dimer; Complete Time: 22:18 cp 02/20 22:35 Order name: CT Head C Spine cp 02/20 22:35 Order name: CT Chest For PE Angio cp 02/20 23:06 Order name: Urine Dipstick--Ancillary (enter results) cc 02/20 23:06 Order name: Urine --Ancillary (enter results) cc 02/20 21:50 Order name: Orthostatics; Complete Time: 22:05 cp 02/20 21:50 Order name: Cardiac monitoring; Complete Time: 21:56 cp 02/20 21:50 Order name: EKG - Nurse/Tech; Complete Time: 21:56 cp 02/20 21:50 Order name: IV Saline Lock; Complete Time: 21:56 cp 02/20 21:50 Order name: Labs collected and sent; Complete Time: 21:57 cp 02/20 21:50 Order name: O2 Per Protocol; Complete Time: 21:57 cp 02/20 21:50 Order name: O2 Sat Monitoring; Complete Time: 21:57 cp 02/20 21:50 Order name: Urine Dipstick-Ancillary (obtain specimen); Complete Time: 23:04 cp 02/20 21:50 Order name: Urine Test (obtain specimen); Complete Time: 23:04 cp EC/05 22:00 Rate is 75 beats/min. Rhythm is regular. [place] interval is normal. QRS interval is normal. cp QT interval is normal. Interpreted by me. Reviewed by me. Administered Medications: 22:48 Drug: Potassium Effervescent Tablet 25 mEq Route: PO; ea 02/21 00:26 Follow up: Response: No adverse reaction tl2 Disposition: 00:41 Co-signature as Attending Physician, Raghav Doherty MD. pkl Disposition: 02/21/18 00:18 Discharged to Home. Impression: Syncope and collapse. - Condition is Stable. - Discharge Instructions: Syncope. - Medication Reconciliation Form, Thank You Letter, Antibiotic Education, Prescription Opioid Use form. - Follow up: Marcial Gracia MD; When: 2 - 3 days; Reason: syncope. - Problem is new. - Symptoms have improved. - Notes: no working up on roof or climbing ladders until follow-up with cardiology Signatures: Dispatcher [employer] Raghav Jones MD MD pkl Page, Corey, PA PA cp Knox, Taylor, RN RN tl2 Dafne Long RN RN ea Corrections: (The following items were deleted from the chart) 00:26 00:18 02/21/2018 00:18 Discharged to Home. Impression: Syncope and collapse. Condition tl2 is Stable. Forms are Medication Reconciliation Form, Thank You Letter, Antibiotic Education, Prescription Opioid Use. Follow up: Marcial Gracia; When: 2 - 3 days; Reason: syncope. Problem is new. Symptoms have improved. cp 00:32 00:26 02/21/2018 00:18 Discharged to Home. Impression: Syncope and collapse. Condition tl2 is Stable. Discharge Instructions: Syncope. Forms are Medication Reconciliation Form, Thank You Letter, Antibiotic Education, Prescription Opioid Use. Follow up: Marcial Gracia; When: 2 - 3 days; Reason: syncope. Problem is new. Symptoms have improved. tl2
[2018-02-21 02:07] LABS: Urine Blood NEGATIVE (NEG); Urine Glucose NEGATIVE (NEG); Urine Protein NEGATIVE (NEG); Urine Specific Gravity >1.030 (1.005-1.030); Urine pH 5.5 (5.0-7.0)
--- NOTE | 2018-02-21 07:50 | EKG ---
Test Date: 2018-02-20 Test Time: 21:52:23 Third Helper: JOEL MEASUREMENT RESULTS: Intervals: Rate: 75 NH: 152 QRSD: 94 QT: 412 QTc: 460 [place]: P: 60 NH: 152 QRS: 12 T: -1 INTERPRETIVE STATEMENTS: Normal sinus rhythm Normal ECG No previous ECG available for comparison Electronically Signed On 02-21-18 07:48:40 CDT by Alphonso Márquez
--- NOTE | 2018-02-21 09:46 | RAD REPORT ---
EXAM DESCRIPTION: CT - Chest For Pe Angio - 02/21/2018 5:43 am CLINICAL HISTORY: Chest pain/syncope/elevated D-dimer COMPARISON: None. TECHNIQUE: Dynamically enhanced axial 3 mm thick images of the chest were obtained during administra tion of <100> mL Isovue 370 IV contrast. Coronal and oblique reconstruction images were generated and reviewed. Exam utilizes a protocol for optimal evaluation of pulmonary arterial tree. A preliminary report was generated by virtual radiologic and reviewed prior to this dictation Maximum intensity projections 3D imaging was utilized All CT scans are performed using dose optimization technique as appropriate and may include automated exposure control or mA/KV adjustment according to patient size. FINDINGS: A pulmonary embolus is not seen. A thoracic aortic aneurysm is not noted. A pleural effusion is not seen. A pericardial effusion is not seen. A lung consolidation is not present. IMPRESSION: Negative for a pulmonary embolism.
--- NOTE | 2018-02-21 09:50 | RAD REPORT ---
EXAM DESCRIPTION: CT - Head C Spine Mpr Wo Con - 02/21/2018 5:42 am CLINICAL HISTORY: Head and neck injury status post fall. Head and neck pain syncope COMPARISON: None. TECHNIQUE: Computed axial tomography of the head and cervical spine was obtained. Sagittal and coronal reconstruction was performed.A preliminary report was generated by [employer] and reviewed prior to this dictation All CT scans are performed using dose optimization technique as appropriate and may include automated exposure control or mA/KV adjustment according to patient size. FINDINGS: An intracranial bleed is not seen. The ventricles are normal in caliber. An extra-axial fl uid collection is not noted.Fluid within the visualized sinuses and mastoids is not seen A cervical fracture is not visualized. No dislocation is noted. IMPRESSION: No acute intracranial abnormality is seen. A cervical fracture is not visualized. If the patient continues to have symptoms to suggest intracra nial /spinal cord pathology then MRI would be recommended
== END 2018-02-21 00:32 | disposition home or self-care (01) ==
LOC: ER 21:38
DX: R55 Syncope and collapse (principal)
CPT/HCPCS: 36415; 70450; 71275; 72125; 80048; 80076; 81003; 81025; 83735; 83880; 84484; 85025; 85379; 85610; 93005; 99284; Q9967

== ENCOUNTER 2018-03-01 13:33 | Emergency (ER) | payer OTHER ==
[2018-03-01 14:48] LABS: Absolute Lymphocytes (CBC) 1.9 K/uL (0.7-4.9); Absolute Monocytes 0.5 K/uL (0.1-1.3); Absolute Neutrophil 5.5 K/uL (1.8-8.0); Basophils % 0.6 % (0-1.3); Eosinophils % 1.7 % (0-4.4); Hematocrit 42.5 % (36.0-45.0); Lymphocytes % 23.2 % (15.3-44.8); MCH 30.4 pg (27.0-35.0); MCV 90.6 fL (80-100); MPV 8.3 fL (7.6-11.3); Monocytes % 6.5 % (3.3-12.3); RBC Red Blood Cell Count 4.69 M/uL (3.86-4.86)
[2018-03-01] MEDS ORDERED: LORazepam 2 MG/ML VIAL ONE (14:48)
[2018-03-01 14:53] LABS: Protime INR 1.03
[2018-03-01 15:07] LABS: ALT/SGPT 56 U/L (12-78); AST/SGOT 24 U/L (15-37); Albumin 3.7 g/dL (3.4-5.0); Alkaline Phosphatase 96 U/L (45-117); BUN Blood Urea Nitrogen 14 mg/dL (7-18); Bicarbonate 26 mmol/L (21-32); Bilirubin Direct < 0.1 mg/dL (0-0.2); Bilirubin Total 0.3 mg/dL (0.2-1.0); Glucose Level 93 mg/dL (74-106); Magnesium 2.5 mg/dL (1.8-2.4); NT PRO-BNP 20 pg/mL (<125); Potassium 4.1 mmol/L (3.5-5.1); Protein, Total 7.3 g/dL (6.4-8.2); Sodium Level 142 mmol/L (136-145); Troponin (Emerg Dept Use Only) < 0.02 ng/mL (0.0-0.045)
--- NOTE | 2018-03-01 15:41 | RAD REPORT ---
EXAM DESCRIPTION: RAD - Chest Single View - 03/01/2018 3:10 pm CLINICAL HISTORY: syncope Chest pain. COMPARISON: No comparisons FINDINGS: Portable technique limits examination quality. The lungs are grossly clear. The heart is normal in size. No displaced fractures. IMPRESSION: No acute intrathoracic process suspected.
--- NOTE | 2018-03-01 16:28 | RAD REPORT ---
EXAM DESCRIPTION: CT - Chest For Pe Angio - 03/01/2018 4:21 pm CLINICAL HISTORY: Chest pain. Hemoptysis, syncope COMPARISON: Chest For Pe Angio dated 02/20/2018 TECHNIQUE: CT angiogram of the pulmonary arteries was performed with MIP. All CT scans are performed using dose optimization technique as appropriate and may include automated exposure control or mA/KV adjustment according to patient size. FINDINGS: No evidence of pulmonary thromboembolism. No acute aortic finding demonstrated. The lungs are clear. No significant pericardial or pleural fluid. No concerning bony finding. IMPRESSION: No evidence of pulmonary thromboembolism. No acute lung findings.
--- NOTE | 2018-03-01 16:36 | EDPHYS ---
Physician Documentation [facility] Name: Emelia Burton Age: 37 yrs Sex: Female : 1980 Arrival Date: 03/01/2018 Time: 13:37 Bed 17 Private MD: ED Physician Lisseth Knutson HPI: 03/01 14:12 This 37 yrs old Female presents to ER via EMS with complaints of Anxiety. jmm 14:12 The patient has experienced syncope, collapsed. Onset: The symptoms/episode jmm began/occurred acutely, just prior to arrival. Duration: This was a single episode. Associated signs and symptoms: Pertinent negatives: abdominal pain, chest pain. This is a 37 year old female with no chronic medical conditions that presents to the ED after she collapsed while on her couch. Patient states having a similar episode recently. Denies chest pain. . 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 - Social history:: Smoking status: Patient/guardian denies using tobacco. - Ebola Screening: : Patient negative for fever greater than or equal to 101.5 degrees Fahrenheit, and additional compatible Ebola Virus Disease symptoms Patient denies exposure to infectious person Patient denies travel to an Ebola-affected area in the 21 days before illness onset No symptoms or risks identified at this time. ROS: 14:12 Constitutional: Negative for fever, chills, and weight loss, Cardiovascular: Negative jmm for chest pain, palpitations, and edema. 14:12 Abdomen/GI: Negative for abdominal pain, nausea, vomiting, diarrhea, and constipation. 14:12 Respiratory: Positive for shortness of breath. 14:12 Neuro: Positive for syncope. 14:12 All other systems are negative. Exam: 14:12 Constitutional: This is a well developed, well nourished patient who is awake, alert, jmm and in no acute distress. Head/Face: atraumatic. Eyes: EOMI, no conjunctival erythema appreciated ENT: Moist Mucus Membranes Neck: Trachea midline, Supple Chest/axilla: Normal chest wall appearance and motion. Cardiovascular: Regular rate and rhythm. No edema appreciated Respiratory: Normal respirations, no respiratory distress appreciated Abdomen/GI: Non distended, soft Back: Normal ROM Skin: General appearance color normal MS/ Extremity: Moves all extremities, no obvious deformities appreciated, no edema noted to the lower extremities Neuro: Awake and alert, normal gait Psych: Behavior is normal, Mood is normal, Patient is cooperative and pleasant Vital Signs: 13:44 BP 106 / 71; Pulse 89; Resp 19; Temp 97.7; Pulse Ox 98% on R/A; Weight 81.65 kg; Height aj 5 ft. 0 in. (152.40 cm); Pain 8/10; 14:46 BP 97 / 77; Pulse 80; Resp 18; Pulse Ox 100% on R/A; aj 15:55 BP 116 / 88; Pulse 71; Resp 17; Pulse Ox 96% on R/A; aj 17:01 BP 125 / 75; Pulse 74; Resp 18; Pulse Ox 99% on R/A; aj 13:44 Body Mass Index 35.15 (81.65 kg, 152.40 cm) aj MDM: 14:12 Patient medically screened. [facility] 16:35 Data reviewed: vital signs, nurses notes. Counseling: I had a detailed discussion with [facility] the patient and/or guardian regarding: the historical points, exam findings, and any diagnostic results supporting the discharge/admit diagnosis, lab results, radiology results, the need for outpatient follow up, to return to the emergency department if symptoms worsen or persist or if there are any questions or concerns that arise at home. 16:35 Data reviewed: lab test result(s), radiologic studies, CT scan. [facility] 16:35 ECG was reviewed by the Attending Physician. [facility] 16:35 Data interpreted: Pulse oximetry: on room air is 99 %. Interpretation: normal. [facility] 03/01 14:17 Order name: Basic Metabolic Panel; Complete Time: 15:16 [facility] 03/01 14:17 Order name: CBC with Diff; Complete Time: 15:16 [facility] 03/01 14:17 Order name: LFT's; Complete Time: 15:16 [facility] 03/01 14:17 Order name: Magnesium; Complete Time: 15:16 [facility] 03/01 14:17 Order name: NT PRO-BNP; Complete Time: 15:16 [facility] 03/01 14:17 Order name: PT-INR; Complete Time: 15:16 [facility] 03/01 14:17 Order name: Troponin (emerg Dept Use Only); Complete Time: 15:16 [facility] 03/01 14:17 Order name: XRAY Chest (1 view); Complete Time: 15:42 [facility] 03/01 14:17 Order name: EKG; Complete Time: 14:18 [facility] 03/01 14:17 Order name: Cardiac monitoring; Complete Time: 14:38 [facility] 03/01 15:46 Order name: CT Chest For PE Angio; Complete Time: 16:35 [facility] 03/01 16:09 Order name: Urine Dipstick--Ancillary (enter results) 03/01 16:09 Order name: Urine --Ancillary (enter results) 03/01 14:17 Order name: EKG - Nurse/Tech; Complete Time: 14:52 [facility] 03/01 14:17 Order name: IV Saline Lock; Complete Time: 14:38 [facility] 03/01 14:17 Order name: Labs collected and sent; Complete Time: 14:38 [facility] 03/01 14:17 Order name: O2 Per Protocol; Complete Time: 14:38 [facility] 03/01 14:17 Order name: O2 Sat Monitoring; Complete Time: 14:38 [facility] Administered Medications: 14:43 Drug: Ativan 0.5 mg Route: IVP; Site: right antecubital; aj 17:03 Follow up: Response: Anxiety decreased aj Disposition: 03/02 09:59 Co-signature as Attending Physician, Lisseth Knutson MD. ma2 Disposition: 03/01/18 16:36 Discharged to Home. Impression: Syncope and collapse. - Condition is Stable. - Discharge Instructions: Syncope. - Medication Reconciliation Form, Thank You Letter, Antibiotic Education, Prescription Opioid Use form. - Follow up: Private Physician; When: 2 - 3 days; Reason: Recheck today's complaints, Continuance of care, Re-evaluation by your physician. Signatures: Dispatcher [employer] Rachana Pfeiffer, RN Dheeraj Joshi PA PA jmm Alzahri, Mohammad, MD MD ma2 Corrections: (The following items were deleted from the chart) 03/01 17:03 16:36 03/01/2018 16:36 Discharged to Home. Impression: Syncope and collapse. Condition aj is Stable. Forms are Medication Reconciliation Form, Thank You Letter, Antibiotic Education, Prescription Opioid Use. Follow up: Private Physician; When: 2 - 3 days; Reason: Recheck today's complaints, Continuance of care, Re-evaluation by your physician. devin
--- NOTE | 2018-03-01 16:36 | ER ---
Nurse's Notes [facility] Name: Emelia Burton Age: 37 yrs Sex: Female : 1980 Arrival Date: 03/01/2018 Time: 13:37 Bed 17 Private MD: Diagnosis: Syncope and collapse Presentation: 03/01 13:41 Presenting complaint: Patient states: Reports feeling rapid heart rate and aj hyperventilation today just LOCUM TENENS. Patient then reports "blacking out". HX of Anxiety but has not taken her Xanax in 1 month because she is out. Patient awake and alert upon EMS arrival. Patient also reports chronic headache that she has had for over 30 years. Transition of care: patient was not received from another setting of care. Onset of symptoms was March 01, 2018. Risk Assessment: Do you want to hurt yourself or someone else? Patient reports no desire to harm self or others. Initial Sepsis Screen: Does the patient meet any 2 criteria? No. Patient's initial sepsis screen is negative. Does the patient have a suspected source of infection? No. Patient's initial sepsis screen is negative. Care prior to arrival: None. 13:41 Method Of Arrival: EMS: [facility] 13:41 Acuity: SARAY 4 aj Triage Assessment: 13:44 General: Appears in no apparent distress. comfortable, Behavior is cooperative, aj appropriate for age, crying, fussy. Pain: Complains of pain in face and scalp Pain began years ago. Neuro: Level of Consciousness is awake, alert, obeys commands, Oriented to person, place, time, situation, Appropriate for age. Cardiovascular: Denies chest pain. Respiratory: Airway is patent Respiratory effort is even, unlabored, Respiratory pattern is regular, symmetrical. Derm: Skin is intact, is healthy with good turgor, Skin is pink, warm \\T\\ dry. normal. 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 - Social history:: Smoking status: Patient/guardian denies using tobacco. - Ebola Screening: : Patient negative for fever greater than or equal to 101.5 degrees Fahrenheit, and additional compatible Ebola Virus Disease symptoms Patient denies exposure to infectious person Patient denies travel to an Ebola-affected area in the 21 days before illness onset No symptoms or risks identified at this time. Screenin:46 Abuse screen: Denies threats or abuse. Denies injuries from another. Nutritional aj screening: No deficits noted. Tuberculosis screening: No symptoms or risk factors identified. Fall Risk None identified. Assessment: 13:46 Reassessment: No changes from previously documented assessment. aj 14:46 Reassessment: No changes from previously documented assessment. Patient and/or family aj updated on plan of care and expected duration. Pain level reassessed. Patient is alert, oriented x 3, equal unlabored respirations, skin warm/dry/pink. Reports having anxiety Patient denies pain at this time. 15:56 Reassessment: Patient appears in no apparent distress at this time. No changes from aj previously documented assessment. Patient and/or family updated on plan of care and expected duration. Pain level reassessed. Patient is alert, oriented x 3, equal unlabored respirations, skin warm/dry/pink. Patient has at bedside. Patient denies pain at this time. Patient states feeling better. Patient states symptoms have improved. 17:01 Reassessment: Patient appears in no apparent distress at this time. No changes from aj previously documented assessment. Patient and/or family updated on plan of care and expected duration. Pain level reassessed. Patient is alert, oriented x 3, equal unlabored respirations, skin warm/dry/pink. Patient denies pain at this time. Patient states feeling better. Patient states symptoms have improved. Vital Signs: 13:44 BP 106 / 71; Pulse 89; Resp 19; Temp 97.7; Pulse Ox 98% on R/A; Weight 81.65 kg; Height aj 5 ft. 0 in. (152.40 cm); Pain 8/10; 14:46 BP 97 / 77; Pulse 80; Resp 18; Pulse Ox 100% on R/A; aj 15:55 BP 116 / 88; Pulse 71; Resp 17; Pulse Ox 96% on R/A; aj 17:01 BP 125 / 75; Pulse 74; Resp 18; Pulse Ox 99% on R/A; aj 13:44 Body Mass Index 35.15 (81.65 kg, 152.40 cm) aj ED Course: 13:37 Patient arrived in ED. aj 13:41 Rachana Murrieta, ALFRED is Primary Nurse. aj 13:43 Triage completed. aj 13:44 Dheeraj Coelho PA is PHCP. devin 13:44 Lisseth Knutson MD is Attending Physician. [facility] 13:44 Arm band placed on left wrist. Patient placed in an exam room, on a stretcher, on pulse aj oximetry. 13:46 Patient has correct armband on for positive identification. Bed in low position. Side aj rails up X 1. 14:33 Inserted saline lock: 20 gauge in right antecubital area, using aseptic technique. mb4 Blood collected. 14:34 Initial lab(s) drawn, by [facility], sent to lab. 4 14:51 EKG done, by ED staff, reviewed by Dheeraj PERALTA. [facility] 15:07 X-ray completed. Portable x-ray completed in exam room. Patient tolerated procedure la2 well. 15:08 XRAY Chest (1 view) In Process Unspecified. EDMS 16:22 CT Chest For PE Angio In Process Unspecified. EDMS 16:33 CT completed. Patient tolerated procedure well. Patient moved to CT via stretcher. kw1 Patient moved back from CT. 17:01 No provider procedures requiring assistance completed. IV discontinued, intact, aj bleeding controlled, No redness/swelling at site. Pressure dressing applied. Administered Medications: 14:43 Drug: Ativan 0.5 mg Route: IVP; Site: right antecubital; 17:03 Follow up: Response: Anxiety decreased rain Outcome: 16:36 Discharge ordered by MD. devin 17:01 Discharged to home ambulatory, with family. aj 17:01 Condition: good 17:01 Discharge instructions given to patient, family, Instructed on discharge instructions, follow up and referral plans. Demonstrated understanding of instructions, follow-up care. 17:03 Patient left the ED. rain Signatures: Dispatcher [employer] EDMS Rachana Murrieta, Dheeraj Joshi RN, PA PA jmm Martinez, Maria [address] la2 Yojana Jo kw1 Fay Ceron mb4 Corrections: (The following items were deleted from the chart) 13:47 13:41 Acuity: SARAY 3 aj aj
[2018-03-01 22:06] LABS: Urine Blood NEGATIVE (NEG); Urine Glucose NEGATIVE (NEG); Urine Protein NEGATIVE (NEG); Urine pH 7.5 (5.0-7.0)
--- NOTE | 2018-03-02 10:06 | EKG ---
Test Date: 2018-03-01 Test Time: 14:46:33 Hoop Coiler: NICO MEASUREMENT RESULTS: Intervals: Rate: 70 HI: 134 QRSD: 82 QT: 400 QTc: 432 Marshall: P: 55 HI: 134 QRS: 46 T: 16 INTERPRETIVE STATEMENTS: Normal sinus rhythm Normal ECG Compared to ECG 02/20/2018 21:52:23 No significant changes Electronically Signed On 03-02-18 10:05:45 CDT by Marcial Gracia
== END 2018-03-01 17:03 | disposition home or self-care (01) ==
LOC: ER 13:33
DX: R55 Syncope and collapse (principal)
CPT/HCPCS: 36415; 71045; 71275; 80048; 80076; 81003; 81025; 83735; 83880; 84484; 85025; 85610; 93005; 96374; 99285; Q9967

== ENCOUNTER 2018-05-01 12:25 | Emergency (ER) | payer OTHER ==
[2018-05-01] MEDS ORDERED: KETOROLAC 30 MG/ML INJ ONE (13:24)
[2018-05-01 13:25] LABS: Absolute Lymphocytes (CBC) 2.1 K/uL (0.7-4.9); Absolute Monocytes 0.3 K/uL (0.1-1.3); Absolute Neutrophil 3.7 K/uL (1.8-8.0); Basophils % 0.7 % (0-1.3); Eosinophils % 0.9 % (0-4.4); Hematocrit 38.2 % (36.0-45.0); Lymphocytes % 33.7 % (15.3-44.8); MCH 30.8 pg (27.0-35.0); MCV 88.9 fL (80-100); MPV 8.6 fL (7.6-11.3); Monocytes % 5.4 % (3.3-12.3)
[2018-05-01 13:28] LABS: Protime INR 1.18
[2018-05-01 13:29] LABS: Urine Blood NEGATIVE (NEG); Urine Glucose NEGATIVE (NEG); Urine Protein NEGATIVE (NEG); Urine Specific Gravity >1.030 (1.005-1.030); Urine pH 5.5 (5.0-7.0)
[2018-05-01 13:40] LABS: ALT/SGPT 24 U/L (12-78); AST/SGOT 15 U/L (15-37); Albumin 3.9 g/dL (3.4-5.0); Alkaline Phosphatase 92 U/L (45-117); BUN Blood Urea Nitrogen 13 mg/dL (7-18); Bicarbonate 26 mmol/L (21-32); Bilirubin Direct 0.1 mg/dL (0-0.2); Bilirubin Total 0.5 mg/dL (0.2-1.0); Glucose Level 94 mg/dL (74-106); Magnesium 2.2 mg/dL (1.8-2.4); NT PRO-BNP 53 pg/mL (<125); Potassium 3.2 mmol/L (3.5-5.1); Protein, Total 7.1 g/dL (6.4-8.2); Sodium Level 142 mmol/L (136-145); Troponin (Emerg Dept Use Only) < 0.02 ng/mL (0.0-0.045)
[2018-05-01] MEDS ORDERED: NA CHLORIDE 0.9% 1,000 ML ONE (13:56)
--- NOTE | 2018-05-01 14:01 | RAD REPORT ---
EXAM DESCRIPTION: RAD - Chest Single View - 05/01/2018 1:33 pm CLINICAL HISTORY: Chest pain COMPARISON: March 01 TECHNIQUE: AP portable chest image was obtained 1326 hours . FINDINGS: Lungs are clear. Heart and vasculature are normal. No measurable pleural effusion and no p neumothorax. No acute bony abnormality seen. No acute aortic findings suspected. IMPRESSION: No acute cardiopulmonary process. No significant interval change.
--- NOTE | 2018-05-01 16:37 | ER ---
Nurse's Notes [facility] Name: Emelia Burton Age: 37 yrs Sex: Female : 1980 Arrival Date: 05/01/2018 Time: 12: Bed 25 Private MD: Diagnosis: Other chest pain Presentation: 05/01 12:29 Presenting complaint: Patient states: anterior chest pain started today with SOB, hx of sv asthma. Transition of care: patient was not received from another setting of care. Onset of symptoms was May 01, 2018. Care prior to arrival: None. 12:29 Method Of Arrival: Wheelchair sv 12:29 Acuity: SARAY 3 sv 13:00 Risk Assessment: Do you want to hurt yourself or someone else? Patient reports no kr2 desire to harm self or others. Initial Sepsis Screen: Does the patient meet any 2 criteria? No. Patient's initial sepsis screen is negative. Does the patient have a suspected source of infection? No. Patient's initial sepsis screen is negative. Triage Assessment: 12:29 General: Appears in no apparent distress. uncomfortable, Behavior is cooperative, sv appropriate for age, anxious. Pain: Complains of pain in chest Pain currently is 7 out of 10 on a pain scale. Quality of pain is described as tightness. Neuro: Level of Consciousness is awake, alert, obeys commands, Oriented to person, place, time, situation, Moves all extremities. Full function Gait is steady, Speech is normal. Respiratory: Respiratory effort is even, unlabored, Respiratory pattern is regular, symmetrical. Historical: - Allergies: 12:30 No Known Allergies; sv - PMHx: 12:30 Migraines; Asthma; sv - PSHx: 12:30 None; sv - Immunization history:: Flu vaccine is not up to date. - Social history:: Smoking status: Patient/guardian denies using tobacco. - Ebola Screening: : No symptoms or risks identified at this time. Screenin:00 Abuse screen: Denies threats or abuse. Denies injuries from another. Nutritional kr2 screening: No deficits noted. Tuberculosis screening: No symptoms or risk factors identified. Fall Risk None identified. Assessment: 13:00 General: Appears in no apparent distress. uncomfortable, well groomed, well developed, kr2 well nourished, Behavior is cooperative, anxious, crying. Pain: Complains of pain in chest Pain does not radiate. Pain currently is 7 out of 10 on a pain scale. Quality of pain is described as pressure, sharp, Pain began gradually, Is continuous, Alleviated by nothing. Neuro: Level of Consciousness is awake, alert, obeys commands, Oriented to person, place, time, situation, Appropriate for age. Cardiovascular: Heart tones S1 S2 Capillary refill < 3 seconds in bilateral fingers Patient's skin is warm and dry. Rhythm is sinus rhythm. Respiratory: Airway is patent Respiratory effort is even, unlabored, Respiratory pattern is regular, symmetrical. GI: Abdomen is flat, non-distended, Bowel sounds present X 4 quads. : Urine is clear. EENT: Oral mucosa is moist. Throat is clear. Derm: Skin is intact, is healthy with good turgor, Skin is pink, warm \T\ dry. Musculoskeletal: Circulation, motion, and sensation intact. 14:36 Reassessment: Patient appears in no apparent distress at this time. Patient and/or kr2 family updated on plan of care and expected duration. Pain level reassessed. Patient is alert, oriented x 3, equal unlabored respirations, skin warm/dry/pink. Patient states feeling better. 15:30 Reassessment: Patient appears in no apparent distress at this time. Patient and/or kr2 family updated on plan of care and expected duration. Pain level reassessed. Patient is alert, oriented x 3, equal unlabored respirations, skin warm/dry/pink. Patient states feeling better. 16:30 Reassessment: Patient appears in no apparent distress at this time. Patient and/or kr2 family updated on plan of care and expected duration. Pain level reassessed. Patient is alert, oriented x 3, equal unlabored respirations, skin warm/dry/pink. Patient denies pain at this time. Patient states feeling better. 16:55 Reassessment: Patient appears in no apparent distress at this time. Patient and/or kr2 family updated on plan of care and expected duration. Pain level reassessed. Patient is alert, oriented x 3, equal unlabored respirations, skin warm/dry/pink. Patient denies pain at this time. Vital Signs: 12:30 BP 132 / 83; Pulse 82; Resp 20; Temp 97.9; Pulse Ox 96% ; Weight 74.84 kg; Height 5 ft. sv 0 in. (152.40 cm); Pain 7/10; 14:36 BP 109 / 60; Pulse 58; Resp 17; Temp 98; Pulse Ox 97% on R/A; kr2 16:07 BP 154 / 83; Pulse 60; Resp 18; Pulse Ox 97% on R/A; mg2 12:30 Body Mass Index 32.22 (74.84 kg, 152.40 cm) sv ED Course: 12:26 Patient arrived in ED. as 12:29 Triage completed. sv 12:30 Arm band placed on. sv 12:51 Joey Hernandez PA is PHCP. cp 12:51 Joey Napier MD is Attending Physician. cp 12:53 EKG done, by obstetrical tech. reviewed by Joey Napier MD. vh 13:00 Patient has correct armband on for positive identification. Placed in gown. Bed in low kr2 position. Call light in reach. Side rails up X2. Adult w/ patient. secured entrance monitor on. Pulse ox on. NIBP on. 13:00 Inserted saline lock: 22 gauge in right antecubital area, using aseptic technique. kr2 Blood collected. 13:00 Patient maintains SpO2 saturation greater than 95% on room air. kr2 13:32 X-ray completed. Portable x-ray completed in exam room. Patient tolerated procedure ls3 well. 13:33 XRAY Chest (1 view) In Process Unspecified. EDMS 14:45 Shalonda Hines, RN is Primary Nurse. kr2 16:23 REPEAT EKG WAS DONE. sm3 17:00 No provider procedures requiring assistance completed. IV discontinued, intact, kr2 bleeding controlled, No redness/swelling at site. Pressure dressing applied. Administered Medications: 13:16 Drug: TORadol 30 mg Route: IVP; Site: right antecubital; kr2 14:00 Follow up: Response: No adverse reaction; Pain is decreased kr2 13:52 Drug: NS 0.9% 1000 ml Route: IV; Rate: 1 bolus; Site: right antecubital; kr2 14:46 Follow up: Response: No adverse reaction; IV Status: Completed infusion kr2 Outcome: 16:36 Discharge ordered by . cp 16:55 Discharged to home ambulatory, with family. kr2 16:55 Condition: good 16:55 Discharge instructions given to patient, family, Instructed on discharge instructions, follow up and referral plans. Demonstrated understanding of instructions, follow-up care, medications, Prescriptions given X 2. 17:02 Patient left the ED. kr2 Signatures: Dispatcher [employer] aYna Clark RN RN sv Martinez, Amelia as Harrell, Venessa vh Page, Corey, PA PA cp Reaves, Karey, RN RN kr2 Angel Angela RN RN [facility] Justina Santiago 3 Kiet Giraldo3 Corrections: (The following items were deleted from the chart) 23:55 13:00 Initial Sepsis Screen: Does the patient meet any 2 criteria? No. Patient's kr2 initial sepsis screen is negative. Does the patient have a suspected source of infection? Yes: kr2 05/02 00:00 1214 16:55 Discharge instructions given to patient, family, Instructed on discharge kr2 instructions, follow up and referral plans. Demonstrated understanding of instructions, follow-up care, kr2
--- NOTE | 2018-05-01 16:37 | EDPHYS ---
Physician Documentation [facility] Name: Emelia Burton Age: 37 yrs Sex: Female : 1980 Arrival Date: 05/01/2018 Time: 12:26 Bed 25 Private MD: ED Physician Joey Napier HPI: 05/01 13:05 This 37 yrs old Female presents to ER via Wheelchair with complaints of Chest cp Pain. 13:05 The patient or guardian reports chest pain that is located primarily in the anterior cp chest wall. 13:05 The pain does not radiate. Associated signs and symptoms: Pertinent positives: cp shortness of breath, Pertinent negatives: abdominal pain, cough, diaphoresis, dizziness, lower extremity pain, lower extremity swelling, recent travel, syncope, vomiting. The chest pain is described as sharp. Duration: The patient or guardian reports a single episode, that is still ongoing, and unchanged. Modifying factors: the symptoms are aggravated by deep breath, palpation of area. Historical: - Allergies: 12:30 No Known Allergies; sv - PMHx: 12:30 Migraines; Asthma; sv - PSHx: 12:30 None; sv - Immunization history:: Flu vaccine is not up to date. - Social history:: Smoking status: Patient/guardian denies using tobacco. - Ebola Screening: : No symptoms or risks identified at this time. ROS: 13:10 Constitutional: Negative for body aches, chills, fever, poor PO intake. cp 13:10 Eyes: Negative for injury, pain, redness, and discharge. cp 13:10 ENT: Negative for drainage from ear(s), ear pain, sore throat, difficulty swallowing, difficulty handling secretions. 13:10 Cardiovascular: Positive for chest pain, Negative for edema, palpitations. 13:10 Respiratory: Positive for shortness of breath, Negative for cough, wheezing. 13:10 Abdomen/GI: Negative for abdominal pain, nausea, vomiting, and diarrhea. 13:10 Back: Negative for pain at rest, pain with movement, radiated pain. 13:10 : Negative for urinary symptoms. 13:10 Skin: Negative for cellulitis, rash. 13:10 Neuro: Negative for altered mental status, dizziness, headache, syncope, near syncope, weakness. 13:10 All other systems are negative. Exam: 12:45 ECG was reviewed by the Attending Physician. cp 13:15 Constitutional: The patient appears in no acute distress, alert, awake, cp non-diaphoretic, non-toxic, well developed, well nourished, uncomfortable. 13:15 Head/Face: Normocephalic, atraumatic. Eyes: Pupils equal round and reactive to light, cp extra-ocular motions intact. Lids and lashes normal. Conjunctiva and sclera are non-icteric and not injected. Cornea within normal limits. Periorbital areas with no swelling, redness, or edema. ENT: Nares patent. No nasal discharge, no septal abnormalities noted. Tympanic membranes are normal and external auditory canals are clear. Oropharynx with no redness, swelling, or masses, exudates, or evidence of obstruction, uvula midline. Mucous membranes moist. Neck: Trachea midline, no thyromegaly or masses palpated, and no cervical lymphadenopathy. Supple, full range of motion without nuchal rigidity, or vertebral point tenderness. No Meningismus. 13:15 Chest/axilla: Inspection: normal, Palpation: crepitus, is not appreciated, tenderness, that is moderate, of the anterior aspect of right upper chest, anterior aspect of left upper chest and mid-sternal area, that partially reproduces the patient's complaints. 13:15 Cardiovascular: Rate: normal, Rhythm: regular, Pulses: Pulses are 2+ in right radial artery and left radial artery. Heart sounds: murmur, not appreciated, rub, not appreciated, gallop, not appreciated, Edema: is not appreciated, JVD: is not appreciated. 13:15 Respiratory: the patient does not display signs of respiratory distress, Respirations: normal, no use of accessory muscles, no retractions, no splinting, no tachypnea, labored breathing, is not present, Breath sounds: are clear throughout, no decreased breath sounds, no stridor, no wheezing. 13:15 Abdomen/GI: Inspection: abdomen appears normal, Bowel sounds: active, all quadrants, Palpation: abdomen is soft and non-tender, in all quadrants, rebound tenderness, is not appreciated, voluntary guarding, involuntary guarding. 13:15 Back: pain, is absent, ROM is normal. 13:15 Skin: cellulitis, is not appreciated, no rash present. 13:15 Neuro: Orientation: to person, place \T\ time. Mentation: is normal, Cerebellar function: is grossly normal, Motor: moves all fours, strength is normal, Sensation: is normal. 16:12 ECG was reviewed by the Attending Physician. cp Vital Signs: 12:30 BP 132 / 83; Pulse 82; Resp 20; Temp 97.9; Pulse Ox 96% ; Weight 74.84 kg; Height 5 ft. sv 0 in. (152.40 cm); Pain 7/10; 14:36 BP 109 / 60; Pulse 58; Resp 17; Temp 98; Pulse Ox 97% on R/A; kr2 16:07 BP 154 / 83; Pulse 60; Resp 18; Pulse Ox 97% on R/A; mg2 12:30 Body Mass Index 32.22 (74.84 kg, 152.40 cm) sv MDM: 12:51 Patient medically screened. cp 13:00 Differential diagnosis: abnormal EKG, acute myocardial infarction, acute pericarditis, cp cholecystitis, Cholelithiasis costochondritis, esophagitis, gastritis, gastroesophageal reflux disease (GERD), pancreatitis, pericarditis, pneumonia, pneumothorax, pulmonary embolus, stable angina, thoracic aortic disection, unstable angina. 16:36 Data reviewed: vital signs, nurses notes, lab test result(s), EKG, radiologic studies, cp plain films. 16:36 Test interpretation: by ED physician or midlevel provider: ECG, plain radiologic cp studies. Counseling: I had a detailed discussion with the patient and/or guardian regarding: the historical points, exam findings, and any diagnostic results supporting the discharge/admit diagnosis, lab results, radiology results, the need for outpatient follow up, a family practitioner, to return to the emergency department if symptoms worsen or persist or if there are any questions or concerns that arise at home. Response to treatment: the patient's symptoms have markedly improved after treatment, and as a result, I will discharge patient. 16:36 Special discussion: Based on the patient's history, exam, and Dx evaluation, there is cp no indication for emergent intervention or inpatient Tx. It is understood by the patient/guardian that if the Sx's persist or worsen they need to return immediately for re-evaluation. 16:36 ED course: VSS. Chest pain improved with meds. Will discharge to home for continued cp monitoring. 05/01 12:57 Order name: Basic Metabolic Panel; Complete Time: 13:43 cp 12/14 13:43 Interpretation: Normal except: K 3.2. cp / 12:57 Order name: CBC with Diff; Complete Time: 13:43 cp 14 12:57 Order name: LFT's; Complete Time: 13:43 cp 1214 12:57 Order name: Magnesium; Complete Time: 13:43 cp /14 12:57 Order name: NT PRO-BNP; Complete Time: 13:43 cp 05/01 12:57 Order name: PT-INR; Complete Time: 13:43 cp 14 12:57 Order name: Troponin (emerg Dept Use Only); Complete Time: 13:43 cp 14 13:44 Interpretation: TROPED < 0.02; Reviewed. 05/01 12:57 Order name: XRAY Chest (1 view); Complete Time: 16:36 cp 05/01 12:57 Order name: D-Dimer; Complete Time: 13:43 cp 14 13:24 Order name: Urine Dipstick--Ancillary (enter results); Complete Time: 13:43 bd 14 13:24 Order name: Urine --Ancillary (enter results); Complete Time: 13:43 bd 14 15:48 Order name: Troponin I; Complete Time: 16:36 cp 14 16:36 Interpretation: TROP < 0.02; Reviewed. cp 05/01 12:35 Order name: EKG; Complete Time: 12:36 sv 05/01 12:35 Order name: EKG - Nurse/Tech; Complete Time: 12:55 sv 05/01 12:57 Order name: Cardiac monitoring; Complete Time: 13:07 cp 14 12:57 Order name: IV Saline Lock; Complete Time: 13:07 cp 05/01 12:57 Order name: Labs collected and sent; Complete Time: 13:07 cp 05/01 12:57 Order name: O2 Per Protocol; Complete Time: 13:07 cp 05/01 12:57 Order name: O2 Sat Monitoring; Complete Time: 13:07 cp 05/01 12:57 Order name: Urine Dipstick-Ancillary (obtain specimen); Complete Time: 13:18 cp 05/01 12:57 Order name: Urine Test (obtain specimen); Complete Time: 13:18 cp 05/01 15:48 Order name: EKG; Complete Time: 15:48 cp 05/01 15:48 Order name: EKG - Nurse/Tech; Complete Time: 16:46 cp EC:45 Rate is 79 beats/min. Rhythm is regular. WI interval is normal. QRS interval is normal. cp QT interval is normal. Interpreted by me. Reviewed by me. 16:12 Rate is 76 beats/min. Rhythm is regular. WI interval is normal. QRS interval is normal. cp QT interval is normal. Interpreted by me. Reviewed by me. Administered Medications: 13:16 Drug: TORadol 30 mg Route: IVP; Site: right antecubital; kr2 14:00 Follow up: Response: No adverse reaction; Pain is decreased kr2 13:52 Drug: NS 0.9% 1000 ml Route: IV; Rate: 1 bolus; Site: right antecubital; kr2 14:46 Follow up: Response: No adverse reaction; IV Status: Completed infusion kr2 Disposition: 05/01/18 16:36 Discharged to Home. Impression: Other chest pain. - Condition is Stable. - Discharge Instructions: Nonspecific Chest Pain, Chest Wall Pain. - Prescriptions for Anaprox DS 550 mg Oral Tablet - take 1 tablet by ORAL route every 12 hours As needed; 20 tablet. Pepcid 20 mg Oral Tablet - take 1 tablet by ORAL route every 12 hours for 10 days; 20 tablet. - Medication Reconciliation Form, Thank You Letter, Antibiotic Education, Prescription Opioid Use, Work release form form. - Follow up: Private Physician; When: 2 - 3 days; Reason: Recheck today's complaints. - Problem is new. - Symptoms have improved. Addendum: 05/04/2018 06:53 Co-signature as Attending Physician, Joey Napier MD I agree with the assessment and c murguia plan of care. Signatures: Dispatcher [employer] Yana Clark RN RN sv Anderson, Corey, MD MD cha Page, Corey, PA PA cp Reaves, Karey, RN RN kr2 Corrections: (The following items were deleted from the chart) 05/01 17:02 16:36 05/01/2018 16:36 Discharged to Home. Impression: Other chest pain. Condition is kr2 Stable. Forms are Medication Reconciliation Form, Thank You Letter, Antibiotic Education, Prescription Opioid Use. Follow up: Private Physician; When: 2 - 3 days; Reason: Recheck today's complaints. Problem is new. Symptoms have improved. cp
--- NOTE | 2018-05-01 22:10 | EKG ---
Test Date: 2018-05-01 Test Time: 16:07:51 [employer] Instrument Repairer: ELIA MEASUREMENT RESULTS: Intervals: Rate: 76 MI: 150 QRSD: 92 QT: 410 QTc: 461 [place]: P: 66 MI: 150 QRS: 44 T: 35 INTERPRETIVE STATEMENTS: Normal sinus rhythm Normal ECG Compared to ECG 03/01/2018 14:46:33 No significant changes Electronically Signed On 05-01-18 22:09:33 [employer]SEM[employer] by Marcial Gracia
--- NOTE | 2018-05-01 22:11 | EKG ---
Test Date: 2018-05-01 Test Time: 12:39:21 [employer] Operator: CHRISTINA MEASUREMENT RESULTS: Intervals: Rate: 79 TN: 146 QRSD: 92 QT: 394 QTc: 451 [place]: P: 77 TN: 146 QRS: 60 T: 33 INTERPRETIVE STATEMENTS: Normal sinus rhythm with sinus arrhythmia Normal ECG Compared to ECG 03/01/2018 14:46:33 No significant changes Electronically Signed On 05-01-18 22:10:06 DEATH CLAIM CLERK by Marcial Gracia
== END 2018-05-01 17:02 | disposition home or self-care (01) ==
LOC: ER 12:25
DX: R07.89 Other chest pain (principal)
CPT/HCPCS: 36415; 71045; 80048; 80076; 81003; 81025; 83735; 83880; 84484 ×2; 85025; 85379; 85610; 93005 ×2; 96361; 96374; 99285; J7030